=== PATIENT | male | born 1995 | race Two or more races ===

== ENCOUNTER 2018-12-28 13:39 | Emergency (ER) | payer OTHER ==
[~2018-12-28] VITALS: Ht 172.7 cm; Wt 113.4 kg
--- NOTE | 2018-12-28 14:03 | NUR ---
Patient discharged to home in stable conditon. Written and verbal after care instructions given to patient and family. Patient and family verbalized understanding of instructions.
== END 2018-12-28 14:07 | disposition home or self-care (01) ==
LOC: ER 13:42
DX: L73.9 Follicular disorder, unspecified (principal); F12.10 Cannabis abuse, uncomplicated; F17.200 Nicotine dependence, unspecified, uncomplicated; Z88.0 Allergy status to penicillin
CPT/HCPCS: A4663

== ENCOUNTER 2019-02-28 15:00 | Emergency (ER) | payer OTHER ==
[~2019-02-28] VITALS: Ht 172.7 cm; Wt 113.4 kg
[2019-02-28] MEDS ORDERED: CLINDAMYCIN HCL 300 MG CAPSULE ONE (15:23)
--- NOTE | 2019-02-28 15:27 | NUR ---
Patient discharged to home in stable conditon. Written and verbal after care instructions given. Patient verbalizes understanding of instructions.
[2019-02-28] MEDS ORDERED: CLINDAMYCIN HCL 150 MG CAPSULE PO ONE (15:30)
== END 2019-02-28 15:28 | disposition home or self-care (01) ==
LOC: ER 15:00
DX: J34.0 Abscess, furuncle and carbuncle of nose (principal); F17.290 Nicotine dependence, other tobacco product, uncomplicated; F12.10 Cannabis abuse, uncomplicated; Z88.0 Allergy status to penicillin
CPT/HCPCS: A4663

== ENCOUNTER 2021-01-16 17:22 | Emergency (ER) | payer OTHER ==
[~2021-01-16] VITALS: Ht 175.3 cm; Wt 124.7 kg
--- NOTE | 2021-01-16 17:27 | NUR ---
DR Hernandez at the bedside for MSE.
[2021-01-16] MEDS ORDERED: CLIN300C12 PO (17:32)
[2021-01-16 17:40] VITALS: BP 113/65
--- NOTE | 2021-01-16 17:40 | NUR ---
Patient discharged to home in stable condition. Written and verbal after care instructions given. Patient verbalizes understanding of instructions. Stressed follow up or return to ER for worsening s/s.
== END 2021-01-16 17:41 | disposition home or self-care (01) ==
LOC: ER 17:22
DX: L03.114 Cellulitis of left upper limb (principal); L98.499 Non-pressure chronic ulcer of skin of other sites with unspecified severity; Z88.0 Allergy status to penicillin
CPT/HCPCS: A4663